=== PATIENT | female | born 1960 | race Caucasian/White ===

== ENCOUNTER 2017-09-30 13:30 | Inpatient (IN) | payer OTHER ==
[~2017-09-30] VITALS: Ht 160 cm; Wt 104.3 kg
== END 2017-10-09 17:01 | disposition home or self-care (01) | DRG 331 ==
LOC: SURH 10-07 06:39 → O/R 10-07 06:39 → SURH 10-07 10:43
PROVIDERS: Colon & Rectal Surgery
PROC: 0DQB4ZZ Repair Ileum, Percutaneous Endoscopic Approach (ICD-10-PCS; principal; 2017-10-07 15:30)
DX: C20 Malignant neoplasm of rectum (principal); Z43.2 Encounter for attention to ileostomy; E66.8 Other obesity

== ENCOUNTER 2021-11-10 13:32 | Emergency (ER) | payer OTHER ==
[~2021-11-10] VITALS: Ht 160 cm; Wt 89.8 kg
== END 2021-11-10 20:05 | disposition home or self-care (01) ==
LOC: ER 13:32
DX: K62.5 Hemorrhage of anus and rectum (principal); C18.9 Malignant neoplasm of colon, unspecified; C78.00 Secondary malignant neoplasm of unspecified lung; Z20.822 Contact with and (suspected) exposure to COVID-19; Z88.0 Allergy status to penicillin; Z88.2 Allergy status to sulfonamides